=== PATIENT | male | born 1980 | race Caucasian/White ===

== ENCOUNTER 2020-07-07 16:17 | Emergency (ER) | payer OTHER, SELFPAY ==
--- NOTE | 2020-07-07 17:42 | PC.NURSE ---
Patient was called to triage at 1705 and again at 1719. there was no answer and patient no longer present.
== END 2020-07-07 17:42 | disposition left against medical advice (07) ==
DX: Z53.21 Procedure and treatment not carried out due to patient leaving prior to being seen by health care provider (principal)
CPT/HCPCS: 99199

== ENCOUNTER 2020-07-08 04:21 | Emergency (ER) | payer OTHER, SELFPAY ==
--- NOTE | ~2020-07-08 | XR_ITS ---
EXAMINATION: XR finger 3rd RT min 2V INDICATION: Right third finger pain TECHNIQUE: Three views of the right third finger are obtained. COMPARISON: None available FINDINGS: There is soft tissue swelling of the third finger. Bone alignment is normal. There is no fr acture. The joint spaces are unremarkable. No radiopaque foreign body is identified. IMPRESSION: 1. Soft tissue swelling of the third finger without acute osseous abnormality. Reviewed, dictated and finalized at location A. ARD WORKER
[2020-07-08 04:26] VITALS: BP 156/113; PULSE 120; RESP 16; TEMP 36.6; O2SAT 100
--- NOTE | 2020-07-08 04:30 | ED.UPPEXIN ---
HPI - Extremity Injury (Upper) General Chief Complaint: Extremity Injury, Upper Stated Complaint: finger swelling Time Seen by Provider: 07/08/20 04:30 Source: patient and family Mode of arrival: ambulatory Limitations: no limitations History of Present Illness HPI narrative: Patient is a 40-year-old male who presents for evaluation of right middle finger pain, swelling, redness, discharge. Patient states he initially noticed a pimple to the base of the right finger, popped it with some purulent discharge, and since that time has had a worsening wound and pain overlying the initial site. Patient states the site has now split open, with drainage, redness, bruising. Patient reports severe pain and worsening pain with movement. He reports the pain is burning in nature. He reports mild hand swelling. He denies numbness. Patient is right-hand dominant. He denies history of skin infection. He denies fever or chills. Patient was placed on Keflex by his primary care physician 24 hours ago, no improvement at this point. Related Data Allergies Allergy/AdvReac Type Severity Reaction Status Date / Time No Known Allergies Allergy Verified 07/08/20 04:29 Review of Systems Review of Systems: Narrative: CONSTITUTIONAL: Denies fever, chills CARDIOVASCULAR: Denies chest pain RESPIRATORY: Denies cough or dyspnea. GASTROINTESTINAL: Denies abdominal pain SKIN: Reports redness, swelling, pain, drainage from third right digit MUSCULOSKELETAL: Denies back pain NEUROLOGIC: Denies numbness PMFSH Past Medical History Medical History Hypertriglyceridemia Surgical History Surgical History History of mandibular surgery Social History Social History (Updated 07/08/20 @ 04:44 by Natasha Echols MD) Smoking status: Never smoker Alcohol intake: never Substance use: never Living arrangements: with family Gender identity (if verbalized by the patient): Male Exam Narrative: Exam Narrative: GENERAL: Awake, alert, conversant HEAD: Normocephalic, atraumatic. EYES: PERRLA and EOMI. ENT: Nares clear, no rhinorrhea or epistaxis. Mucous membranes moist. NECK: Supple. CHEST: No respiratory distress, breathing even and non labored HEART: Regular rate, sinus rhythm ABDOMEN:Non distended, non tender EXTREMITIES: Circumferential erythema, edema to the base of the right third phalanx with associated wound that is splitting open with serous and purulent discharge. Intact flexion and extension at the DIP. More limited at the PIP due to pain and edema. Erythema and warmth present. Ecchymoses present. Pt holding third phalanx in flexion. Mild edema of the dorsum of the right hand. Radial pulse 2+. Intact sensation median, ulnar, radial nerve distribution. SKIN: Warm, dry, no rash. NEURO:No focal deficits. Alert and oriented x3 Course Vital Signs Vital signs: Vital Signs Temperature 36.6 C 07/08/20 04:26 Pulse Rate 120 H 07/08/20 04:26 Respiratory Rate 16 07/08/20 04:26 Blood Pressure 156/113 H 07/08/20 04:26 Pulse Oximetry 100 07/08/20 04:26 Temperature 36.6 C 07/08/20 04:26 Pulse Rate 120 H 07/08/20 04:26 Respiratory Rate 16 07/08/20 04:26 Blood Pressure 156/113 H 07/08/20 04:26 Pulse Oximetry 100 07/08/20 04:26 MDM - Extremity Injury (Upper) MDM Narrative Medical decision making narrative: Patient presented for evaluation of right third digit pain, swelling, drainage from wound site that has failed outpatient antibiotics. On exam, concerning for flexor tenosynovitis, possible intra-articular abscess or joint space infection. Patient tachycardic with leukocytosis, meeting SIRS criteria. Patient was given IV vancomycin. His tetanus was updated. Due to limited bed availability at tertiary care centers, patient was unable to be accepted for transfer to [facility],
[2020-07-08 05:11] LABS: Basophils Absolute Auto 0.1 K/mm3 (0.0-0.1); Basophils Percent Auto 0.8 % (0.2-1.2); Eosinophils Absolute Auto 0.2 K/mm3 (0-0.3); Eosinophils Percent Auto 1.2 % (0-4.4); Hemoglobin 15.8 g/dL (14.0-18.0); Immature Granulocyte Absolute 0.15 K/mm3 (0.00-0.031); Immature Granulocyte Percent A 1.1 % (0-0.5); Lymphocytes Absolute Auto 1.88 K/mm3 (0.9-3.2); Lymphocytes Percent Auto 13.6 % (18.3-44.2); Mean Corpuscular HGB Conc 33.6 g/dl (32-36); Mean Corpuscular Hemoglobin 30.4 pg (26-34); Mean Corpuscular Volume 90.4 fl (80-100); Mean Platelet Volume 9.1 fl (7.4-10.4); Monocytes Percent Auto 7.3 % (2.6-8.5); Neutrophils Absolute Auto 10.5 K/mm3 (1.3-6.7); Platelet Count Result 237 k/mm3 (150-375); Red Cell Distribution Width 12.5 % (11.5-14.5); White Blood Count 13.9 K/mm3 (4.5-10.0)
[2020-07-08] MEDS: MORPHINE SULFATE (*CRX) 4 MG/ML INJ IV PUSH (05:12)
[2020-07-08] MEDS: TETANUS,DIPHTHERIA,AC PERTUSSIS ADULT (0.5 ML) BOOSTRIX IM (05:13)
[2020-07-08] MEDS: ONDANSETRON INJ 4 MG/2 ML VIAL IV PUSH (05:13)
[2020-07-08 05:26] LABS: Anion Gap 7 mmol/L (8-16); Blood Urea Nitrogen 15 mg/dL (9-20); Calcium 8.7 mg/dL (8.4-10.2); Carbon Dioxide 29 mmol/L (22-30); Chloride 99 mmol/L (98-107); Estimated CRCL calculation 145 ml/min; Estimated Glomerular Filt Rate > 60; Glucose 132 mg/dL (75-110); Potassium 3.9 mmol/L (3.4-5.0); Sodium 135 mmol/L (137-145)
[2020-07-08 05:27] LABS: Lactic Acid Reflex 1.8 mmol/L (0.7-2.1)
[2020-07-08 05:30] LABS: CRP 1.8 mg/dL (<1.0)
--- NOTE | 2020-07-08 05:42 | PC.NURSE ---
called [facility] and cancel transfer
[2020-07-08 06:13] LABS: Erythrocyte Sedimentation Rate 16 mm/hr (0-20)
[2020-07-08] MEDS: oxyCODONE/ACETAMINOPHEN (*CRX) 5-325 MG TABLET 1 TABLET PO (06:33)
[2020-07-08 06:35] VITALS: BP 167/114; PULSE 106; RESP 18; TEMP 36.8; O2SAT 100
== END 2020-07-08 06:40 | disposition short-term general hospital (02) ==
PROVIDERS: Emergency Provider Emergency Medicine; PCP Emergency Medicine
DX: L03.011 Cellulitis of right finger (principal); M65.841 Other synovitis and tenosynovitis, right hand; E78.1 Pure hyperglyceridemia; Z23 Encounter for immunization
CPT/HCPCS: 36415; 73140; 80048; 83605; 85025; 85652; 86140; 87040; 90471; 90715; 96365; 96375; 99284; A9270; J2270; J2405; J3370

== ENCOUNTER 2021-10-10 19:31 | Emergency (ER) | payer OTHER, SELFPAY ==
--- NOTE | ~2021-10-10 | XR_ITS ---
EXAMINATION: XR abdomen/kub 1V DATE: 10/10/2021 20:21 INDICATION: Abdominal laceration. TECHNIQUE: A supine view of the abdomen on 2 radiographs was obtained. COMPARISON: None. FINDINGS: There are no dilated loops of bowel. IMPRESSION: 1. No radiopaque foreign body. Reviewed, dictated and finalized at location A. WORKING MACHINIST
[2021-10-10 19:33] VITALS: BP 139/102; PULSE 94; RESP 18; TEMP 36.3; O2SAT 98
[2021-10-10] MEDS: TETANUS,DIPHTHERIA,AC PERTUSSIS ADULT (0.5 ML) BOOSTRIX IM (20:37)
[2021-10-10] MEDS: traMADol HCL (*CRX) 50 MG TABLET PO (20:37)
--- NOTE | 2021-10-10 21:06 | ED.GENADULT ---
HPI - General Adult General Chief complaint: Wound/Laceration Stated complaint: abdominal wound Time Seen by Provider: 10/10/21 19:48 Source: patient Mode of arrival: ambulatory Limitations: no limitations History of Present Illness HPI narrative: Patient presents with chief complaint of laceration to the lower left abdomen that he sustained after and grinding blade broke and shattered. He states he wasn't sure if there was a piece in his skin. He states he is not sure if the blade is made of metal or a ceramic composite. He denies any other injuries. Patient states he does not think he is UTD on tetanus. Related Data Allergies Allergy/AdvReac Type Severity Reaction Status Date / Time No Known Allergies Allergy Verified 07/08/20 04:29 Review of Systems Review of Systems: CONSTITUTIONAL: Denies fever, chills, or sweats. EYES: Denies visual changes, redness, or discharge. ENT: Denies rhinorrhea, congestion, sore throat, or otalgia. CARDIOVASCULAR: Denies chest pain, palpitations, or edema. RESPIRATORY: Denies cough or dyspnea. GASTROINTESTINAL: Denies abdominal pain, nausea, vomiting, or diarrhea. GENITOURINARY: Denies dysuria or hematuria. SKIN: Reports laceration denies rash or itching. MUSCULOSKELETAL: Denies back pain, joint pain, or myalgia. NEUROLOGIC: Denies headache, numbness, dizziness, or weakness. PSYCHIATRIC: Denies anxiety or depression. PMFSH Past Medical History Medical History Hypertriglyceridemia Surgical History Surgical History History of mandibular surgery Social History Social History (Updated 07/08/20 @ 04:44 by Natasha Echols MD) Smoking status: Never smoker Alcohol intake: never Substance use: never Gender identity (if verbalized by the patient): Male Exam Narrative: GENERAL: Well-appearing, well-nourished, and in no acute distress. HEAD: Normocephalic, atraumatic. EYES: PERRLA and EOMI. CHEST: Clear to auscultation. No respiratory distress. No wheezes rales or rhonchi HEART: Regular rate and rhythm. No murmur heard. Normal peripheral pulses. ABDOMEN: 1cm area of laceration with gape, with longer abrasion inferiorly to lower left abdomen. Soft, nontender, nondistended, normal active bowel sounds. EXTREMITIES: Normal range of motion. No edema. SKIN: Warm, dry, no rash. NEURO: No focal deficits. Alert and oriented x3. PSYCH: Normal mood and affect. Course Vital Signs Vital signs: Vital Signs Temperature 97.3 F L 10/10/21 19:33 Pulse Rate 94 10/10/21 19:33 Respiratory Rate 18 10/10/21 19:33 Blood Pressure 139/102 H 10/10/21 19:33 Pulse Oximetry 98 10/10/21 19:33 Temperature 97.3 F L 10/10/21 19:33 Pulse Rate 94 10/10/21 19:33 Respiratory Rate 18 10/10/21 19:33 Blood Pressure 139/102 H 10/10/21 19:33 Pulse Oximetry 98 10/10/21 19:33 Medical Decision Making MDM Narrative Medical decision making narrative: Wound cleansed and can not palpate foreign body. I suggest staple of the upper area, but patient refused. Discussed that no radiopaque foreign body seen but if non radiopaque foreign body is inside it will generally work it's way to the surface, especially since patient is allowing wound to heal naturally. Discussed risk of infection and wound care. Vital Signs Vital Signs: Vital Signs Temperature 97.3 F L 10/10/21 19:33 Pulse Rate 94 10/10/21 19:33 Respiratory Rate 18 10/10/21 19:33 Blood Pressure 139/102 H 10/10/21 19:33 Pulse Oximetry 98 10/10/21 19:33 Temperature 97.3 F L 10/10/21 19:33 Pulse Rate 94 10/10/21 19:33 Respiratory Rate 18 10/10/21 19:33 Blood Pressure 139/102 H 10/10/21 19:33 Pulse Oximetry 98 10/10/21 19:33 Imaging Data Radiologist's impression: ITS Impressions Abdomen X-Ray 10/10/21 20:22 IMPRESSION: 1. No radiopaque foreign body. Discharge Plan Di
--- NOTE | 2021-10-10 21:16 | PC.NURSE ---
pt refused dressing to wound prior to dc, stated that he had many dressings at home and he, would do it when I get back .
== END 2021-10-10 21:17 | disposition home or self-care (01) ==
PROVIDERS: Emergency Provider Family Medicine; PCP Emergency Medicine
DX: S31.114A Laceration without foreign body of abdominal wall, left lower quadrant without penetration into peritoneal cavity, initial encounter (principal); Z23 Encounter for immunization; E78.1 Pure hyperglyceridemia; W20.8XXA Other cause of strike by thrown, projected or falling object, initial encounter
CPT/HCPCS: 74018; 90471; 90715; 99283; A9270

== ENCOUNTER 2022-06-07 10:28 | Emergency (ER) | payer OTHER, SELFPAY ==
[2022-06-07 10:45] VITALS: BP 136/98; PULSE 95; RESP 16; TEMP 36.4; O2SAT 100
--- NOTE | 2022-06-07 10:53 | ED.UPPEXIN ---
HPI - Extremity Injury (Upper) General Chief Complaint: Extremity Injury, Upper Stated Complaint: Right Thumb Pain Time Seen by Provider: 06/07/22 10:53 Source: patient and RN notes reviewed Mode of arrival: ambulatory Limitations: no limitations History of Present Illness HPI narrative: 42-year-old male presented to the [facility] requesting to have his cast replaced. Patient reports that he had a thumb amputation with reattachment at [place] 2 weeks ago. They placed him in a cast and the cast is not in great shape. Patient is holding it together with electric tape. Patient states that he missed his appointment on 03 June. States the pain has changed underneath the cast. And wants the cast cut off/changed Related Data Home Medications Medication Instructions Recorded Confirmed No Home Medications 06/07/22 06/07/22 Allergies Allergy/AdvReac Type Severity Reaction Status Date / Time No Known Allergies Allergy Verified 07/08/20 04:29 Review of Systems Review of Systems: All systems reviewed & are unremarkable except as noted in HPI and below Constitutional: Constitutional: Reports no additional constitutional complaints, Denies chills and Denies fever(s) Eyes: Eyes: Reports no additional eye complaints ENT: Reports system reviewed and no additional complaints, except as documented Cardiovascular: Cardiovascular: Reports no additional cardiovascular complaints Respiratory: Respiratory: Reports no additional respiratory complaints Gastrointestinal: Gastrointestinal: Reports no additional gastrointestinal complaints Musculoskeletal: Musculoskeletal: Reports as per HPI Integumentary/Breasts: Skin/Breast: Reports system reviewed and no additional complaints, except as docu Neurologic: Reports system reviewed and no additional complaints, except as documented Psychiatric: Psychiatric: Reports no additional psychiatric complaints Allergic/Immunologic: Allergic/Immunologic: Reports no additional allergic/immunologic complaints [facility] Past Medical History Medical History Hypertriglyceridemia Surgical History Surgical History (Updated 06/07/22 @ 18:21 by Octavia Rudolph APRN) History of mandibular surgery 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 There is no relevant family history pertinent to the patient complaint. Exam Const: General: healthy appearing, no acute distress, alert and well nourished Nutritional Appearance: well nourished Orientation/consciousness: patient oriented x3 Limitations: no limitations Eyes: General: appearance normal, both eyes and all related structures Pupils: Equal, round and reactive pupils present Chest: Chest palpation & inspection: normal inspection of the chest Resp: Effort & Inspection: no use of accessory muscles Auscultation: clear to auscultation bilaterally, no crackles, no rales, no rhonchi and no wheezes Skin: General skin exam: normal color Rashes: no rashes Wounds: no wounds Neuro: General: patient oriented x3, moves all extremities, no meningeal signs and no focal motor deficits Cranial nerves: Yes Equal, round and reactive pupils present Speech: normal speech Gait exam (Neuro): Normal gait present Psych: Appearance: grossly normal and well kempt Mental Status: mental status grossly normal Affect: normal affect Attitude: cooperative Thought content: Yes Normal thought content present Course Course Emergency Course: Patient presented to have cast removed from surgery he had done at 2 weeks ago for a thumb amputation, reat
== END 2022-06-07 11:00 | disposition left against medical advice (07) ==
LOC: EXPCOLL 10:31
PROVIDERS: Emergency Provider Nurse Practitioner; PCP Emergency Medicine
DX: Z46.89 Encounter for fitting and adjustment of other specified devices (principal); E78.1 Pure hyperglyceridemia
CPT/HCPCS: 99212; G0463

== ENCOUNTER 2024-01-24 05:31 | Emergency (ER) | payer OTHER, SELFPAY ==
--- NOTE | ~2024-01-24 | XR_ITS ---
EXAMINATION: XR toe 1st RT min 2V DATE: 01/24/2024 06:00 INDICATION: Right great toe injury. TECHNIQUE: 3 views of right great toe were obtained. COMPARISON: None. FINDINGS: There is mild hallux valgus. No fracture. There is mild osteoarthritis of first metatarsoph alangeal joint. IMPRESSION: 1. Mild hallux valgus. 2. Mild osteoarthritis of first metatarsophalangeal joint. Reviewed, dictated and finalized at location A.
[2024-01-24 05:33] VITALS: BP 142/95; PULSE 98; RESP 20; TEMP 36.7; O2SAT 100
[2024-01-24] MEDS: MORPHINE SULFATE (*CRX) 4 MG/ML INJ IV PUSH (05:43)
[2024-01-24] MEDS: ONDANSETRON INJ 4 MG/2 ML VIAL IV PUSH (05:48)
--- NOTE | 2024-01-24 05:49 | PC.NURSE ---
EDP Dr. Mendoza at bedside to numb his toe.
--- NOTE | 2024-01-24 06:05 | ED.LOWEXIN ---
HPI - Extremity Injury (Lower) General Chief Complaint: Extremity Injury, Lower Stated Complaint: Right foot injury Time Seen by Provider: 01/24/24 05:39 History of Present Illness HPI Narrative: Patient presenting after he dropped something on to his right great toe, he is having significant pain to the toenail. 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 EYES: EOMI, conjunctiva normal ENT: Hearing grossly intact LUNGS: Nonlabored breathing. HEART: [Regular rate and rhythm], normal cap refill ABD: Nondistended EXT: Normal range of motion SKIN: Bruising R distal great toe with some dried blood NEURO: [Alert and oriented x 3. No gross focal sensory or strength deficits.] PSYCH: Normal affect Course Vital Signs Vital signs: Vital Signs Temperature 98.0 F 01/24/24 05:33 Pulse Rate 98 01/24/24 05:33 Respiratory Rate 20 01/24/24 05:33 Blood Pressure 142/95 H 01/24/24 05:33 Pulse Oximetry 100 01/24/24 05:33 Oxygen Delivery Room Air 01/24/24 05:33 Temperature 98.0 F 01/24/24 05:33 Pulse Rate 98 01/24/24 05:33 Respiratory Rate 20 01/24/24 05:33 Blood Pressure 142/95 H 01/24/24 05:33 Pulse Oximetry 100 01/24/24 05:33 Oxygen Delivery Room Air 01/24/24 05:33 Procedures Nail Trephination Nail Trephination #1: Nail Trephination Date: 01/24/24 Nail Trephination Time: 06:28 Location (toes): right (big toe) Sterile prep: betadine and chlorhexidine Method of drainage: nail cautery Procedure successful: No Patient tolerated procedure: well and no complications Nail Trephination Comment: no blood drained Nerve Block Nerve Block 1: Nerve block date: 01/24/24 Nerve block time: 06:20 Local Anesthetic: lidocaine 1% Amount of anesthesia used (mL): 3 Side: right Nerve Blocks: digital Procedure Successful: Yes Patient Tolerated Procedure: well and no complications MDM - Extremity Injury (Lower) MDM Narrative Medical decision making narrative: Patient presenting after he dropped something on his right great toe about 2 hours ago, he is reporting pain that has been worsening. He does appear quite uncomfortable on exam, he has normal cap refill, no tense compartment, there is bruising developing to the right great toe, which appears to be dried blood on the toenail. I did with verbal consent attempt to try to trephinate the toenail however no blood attained I suspect it may have dried over last 2 hours. X-ray on my independent interpretation no obvious fracture. Patient much more comfortable after her block and he is given hard shoe and ice and follow-up to radiotelegraph operator servicer with strict return precautions. Discharge Plan Discharge Clinical Impression: Crush injury of toe Patient Disposition: Home, Self-Care Condition: Stable Instructions: Antibiotic Form, Crush Injury (ED) Additional Instructions: Please follow-up with the radiotelegraph operator servicer, maicol nieves
[2024-01-24 06:50] VITALS: PULSE 68; RESP 16; O2SAT 98
== END 2024-01-24 06:51 | disposition home or self-care (01) ==
PROVIDERS: Emergency Provider Emergency Medicine; PCP Emergency Medicine
DX: S97.111A Crushing injury of right great toe, initial encounter (principal); M20.11 Hallux valgus (acquired), right foot; M19.071 Primary osteoarthritis, right ankle and foot; W20.8XXA Other cause of strike by thrown, projected or falling object, initial encounter
CPT/HCPCS: 11740; 73660; 96374; 96375; 99284; J2270; J2405

== ENCOUNTER 2025-01-04 16:29 | Emergency (ER) | payer OTHER, SELFPAY ==
--- OUTSIDE RECORDS SUMMARY | 2025-01-04 16:33 | XMS_ITS | Clinical Summary ---
Author Organization [facility] Address [address] [place] [id number] Care Team Providers Care Clinic Coordinator Name Role Phone None, Provider MD Primary Care Provider Unavaila ble Allergies No known active allergies Medications ondansetron (ZOFRAN-ODT) 4 MG disintegrating tablet Take 1 tablet (4 mg total) by mouth every 8 (eight) hours as needed for Nausea. 20 tablet 3 Active Immunizations Immunization Administration Dates Next Due Tdap (Boostrix) 09/09/2018 Social History Tobacco Use Types Packs/Day Years Used Date Smoking Tobacco: Never Smokeless Tobacco: Never Tobacco Cessation:Counseling Given: Not Answered Alcohol Use Standard Drinks/Week Comments No 0 (1 standard drink = 0.6 oz pur e alcohol) AUDIT-C Answer Date Recorded Frequency of Alcohol Consumption Never 06/21/2018 Average Number of Drinks Not on file 018 Frequency of Binge Drinking Not on file 06/02 Sex and Gender Information Value Date Recorded Sex Assigned at Not on file Legal Sex Male 6:10 PM CDT Gender Identity Not on file Sexual Orientation Not on file Last Filed Vital Signs Vital Sign Reading Time Taken Comments Blood Pressure 139/102 2023 9:00 AM CDT Pulse 56 2023 9:00 AM CDT Temperature 36.7 C (98.1 F) 2023 4:03 AM CDT Respiratory Rate 18 2023 9:00 AM CDT Oxygen Saturation 99% 2023 9:00 AM CDT Inhaled Oxygen Concentration - - Weight 122.5 kg (270 lb) 2023 4:03 AM CDT Height 188 cm (6' 2 ) 2023 4:03 AM CDT Body Mass Index 34.67 2023 4:03 AM CDT Plan of Treatment Health Maintenance Due Date Last Done Comments Annual Physical 1983 Hepatitis C 1998 Hepatitis B Vaccines (1 of 3 - 19+ 3-dose series) 1999 COVID-19 Vaccine (2023-2 5 season) 2024 DTaP, Tdap and Td Vaccines ( 2 - Td or Tdap) 09/09/2028 09/09/2018 HPV Vaccines Aged Out No longer eligi ble based on patient's age to complete this topic Meningococcal B Vaccine Aged Out No l onger eligible based on patient's age to complete this topic Meningococcal Vaccine Aged Out No ismael gerri eligible based on patient's age to complete this topic Pneumococcal Vaccine: Pediat rics (0 to 5 Years) and At-Risk Patients (6 to 49 Years) Aged Out No longer eligi ble based on patient's age to complete this topic RSV Immunizations Under 20 Months Aged Out No longer eligible based on patient's age to complete this topic Insurance [place] [address] Care Teams Clinic Coordinator Relationship Specialty Start Date End Date None, Provider, PCP - General 09/09/18
[2025-01-04 16:34] VITALS: BP 141/102; PULSE 86; RESP 16; TEMP 36.6; O2SAT 98
--- NOTE | 2025-01-04 18:20 | PC.NURSE ---
Pt called out at 1750, no answer. Second call out at 1820, no answer. Pt not seen in waiting room or outside.
--- OUTSIDE RECORDS SUMMARY | 2025-01-04 19:46 | XMS_ITS | Clinical Summary ---
Author Organization [facility] Address [address] [place] [id number] Care Team Providers Care Epic Beacon Analyst Name Role Phone None, Provider MD Primary [...] age to complete this topic Insurance [place] [address] [address] Care Teams Epic Beacon Analyst Relationship Specialty Start Date End Date None, Provider, PCP - General 09/09/18
== END 2025-01-04 20:18 | disposition left against medical advice (07) ==
LOC: ANHED 19:45
PROVIDERS: PCP Emergency Medicine
DX: M25.572 Pain in left ankle and joints of left foot (principal)
CPT/HCPCS: 99199

== ENCOUNTER 2025-02-15 11:51 | Emergency (ER) | payer OTHER, SELFPAY ==
--- NOTE | ~2025-02-15 | XR_ITS ---
XR hand RT min 3V Ordering provider: Quinton Morris MD History: . ALTERCATION/PAIN 4TH METACARPAL AREA . Comparison: July 08, 2020 FINDINGS: BONES: No acute fracture or dislocation. Old healed fractures are seen in the proximal and distal pha langes of the right thumb. JOINT SPACES: Normal. SOFT TISSUES: Normal. IMPRESSION: No acute osseous abnormality right hand. Reviewed, dictated and finalized at location A.
[2025-02-15 12:05] VITALS: BP 123/79; PULSE 86; RESP 17; TEMP 36.6; O2SAT 100
--- OUTSIDE RECORDS SUMMARY | 2025-02-15 12:43 | XMS_ITS | Clinical Summary ---
Author Organization [facility] Address [address] [place] [id number] Care Team Providers Care Manager Transfusion Name Role Phone None, Provider MD Primary [...] 4:03 AM CDT Height 188 cm (6' 2) 2023 4:03 AM CDT Body Mass Index [...] age to complete this topic Insurance [place] [address] [address] Care Teams Manager Transfusion Relationship Specialty Start Date End Date None, Provider, PCP - General 09/09/18
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
[2025-02-15] MEDS: HYDROcodone/acetaminophen (*CRX) 5-325 MG TABLET 1 TAB PO (13:28)
[2025-02-15 13:42] VITALS: BP 127/85; PULSE 79; RESP 16; O2SAT 98
== END 2025-02-15 13:44 | disposition home or self-care (01) ==
PROVIDERS: Emergency Provider Family Medicine; PCP Emergency Medicine
DX: S61.411A Laceration without foreign body of right hand, initial encounter (principal); I10 Essential (primary) hypertension; E78.1 Pure hyperglyceridemia; Y04.0XXA Assault by unarmed brawl or fight, initial encounter
CPT/HCPCS: 73130; 99283; A9270